=== PATIENT | male | born 1985 | race Caucasian/White ===

== ENCOUNTER 2016-12-02 02:29 | Inpatient (IN) | payer SELFPAY ==
[~2016-12-02] VITALS: Ht 175.3 cm; Wt 60.1 kg
[~2016-12-02 02:29] MED LIST: CIPRO500 MG PO; PERCOCET 5/31 TABLET PO
[2016-12-02 03:05] LABS: ADD MIUA? NO; BILIRUBIN NEGATIVE; BLOOD NEGATIVE; COLOR STRAW ((YELLOW)); GLUCOSE (STRIP) NEGATIVE; KETONES NEGATIVE; LEUKOCYTES NEGATIVE; NITRITE NEGATIVE; PROTEIN (STRIP) NEGATIVE; SPECIFIC GRAVITY 1.006 (1.000-1.030); UCUL ADDED? NO; UROBILINOGEN 0.2 MG/DL (0.2-1.0)
[2016-12-02 03:10] LABS: COCAINE NEGATIVE (150 ng/mL); METHAMPHETAMINE NEGATIVE (500 ng/mL); PHENCYCLIDINE NEGATIVE (25 ng/mL); THC CANNABINOIDS PRESUMPTIVE POSITIVE (50 ng/mL)
[2016-12-02 03:11] LABS: ADD MEDTOX COMMENT Y; AMPHETAMINE NEGATIVE (500 ng/mL); BARBITURATES PRESUMPTIVE POSITIVE (200 ng/mL); BENZODIAZEPINES NEGATIVE (150 ng/mL); INTERNAL CONTROLS VALID? YES; METHADONE NEGATIVE (200 ng/mL); OPIATES (MORPHINE) PRESUMPTIVE POSITIVE (100 ng/mL); OXYCODONE NEGATIVE (100 ng/mL); PROPOXYPHENE NEGATIVE (300 ng/mL); TRICYCLIC ANTIDEPRESSANTS NEGATIVE (300 ng/mL)
[2016-12-02 03:11] LABS: HEMATOCRIT 41.7 % (38.0-50.0); MCH 30.2 PG (29.0-34.0); MCHC 34.8 G/DL (30.0-36.0); MCV 86.9 FL (86-99); MEAN PLAT.VOLUME 9.7 uM^3 (9.0-12.4); PLATELET COUNT 352 K/uL (156-360); RBC DIS.WIDTH-CV 12.1 % (11.8-14.6); WHITE BLOOD COUNT 11.6 K/uL (4.1-10.2)
[2016-12-02 03:21] LABS: CHLORIDE 101 mEq/L (99-109); POTASSIUM 3.7 mEq/L (3.7-5.4); SODIUM 140 mEq/L (136-147)
[2016-12-02 03:23] LABS: GLUCOSE 114 mg/dL (70-99)
[2016-12-02 03:24] LABS: ANION GAP 16 MEQ/L (2-14)
[2016-12-02 03:26] LABS: SERUM ETHYL ALCOHOL < 10 mg/dL
[2016-12-02 03:27] LABS: GFR ESTIMATE (CALCULATED) > 59 mL/min/
[2016-12-02 03:28] LABS: UREA NITROGEN (BUN) 7 mg/dL (9-23)
[2016-12-02 08:18] VITALS: BP 128/68
[2016-12-02 15:03] VITALS: BP 118/73
[2016-12-02 21:58] VITALS: BP 113/63
[2016-12-03 07:57] VITALS: BP 118/73
[2016-12-03 10:28] LABS: TROP-I INTERPRETATION NEGATIVE; TROPONIN-I < 0.01 ng/mL (0.0-0.30)
[2016-12-03 15:39] VITALS: BP 118/65
[2016-12-04 08:01] VITALS: BP 116/72
[2016-12-04 16:08] VITALS: BP 121/63
[2016-12-05 07:48] VITALS: BP 114/71
== END 2016-12-05 12:59 | disposition home or self-care (01) | DRG 897 ==
LOC: EME 02:29 → 1WEST 06:18 → EDOF 06:18 → 1WEST 08:07 → ENRESERV 08:13 → 1WEST 08:14
PROVIDERS: Emergency Medicine; Psychiatry & Neurology Psychiatry
DX: F11.24 Opioid dependence with opioid-induced mood disorder (principal); F16.980 Hallucinogen use, unspecified with hallucinogen-induced anxiety disorder; R45.851 Suicidal ideations; F12.90 Cannabis use, unspecified, uncomplicated; R00.1 Bradycardia, unspecified; F17.200 Nicotine dependence, unspecified, uncomplicated; Z59.0 Homelessness
CPT/HCPCS: 80048; 81003; 84443; 84484; 84999; 85027; 90837; 93005; 99281; 99285; G0480; Q0177

== ENCOUNTER 2017-07-15 18:37 | Emergency (ER) | payer OTHER ==
[~2017-07-15] VITALS: Ht 170.2 cm; Wt 82.0 kg
[2017-07-15 19:55] LABS: HEMATOCRIT 45.4 % (38.0-50.0); HEMOGLOBIN 15.7 G/DL (12.5-16.6); MCH 30.3 PG (29.0-34.0); MCHC 34.6 G/DL (30.0-36.0); MCV 87.5 FL (86-99); PLATELET COUNT 391 K/uL (156-360); RBC DIS.WIDTH-CV 11.9 % (11.8-14.6); RBC DIS.WIDTH-SD 38.5 % (39-53); RED BLOOD COUNT 5.19 M/uL (4.00-5.50); WHITE BLOOD COUNT 8.2 K/uL (4.1-10.2)
[2017-07-15 20:01] LABS: APPEARANCE CLEAR ((CLEAR)); BILIRUBIN NEGATIVE; BLOOD NEGATIVE; COLOR STRAW ((YELLOW)); GLUCOSE (STRIP) NEGATIVE; KETONES NEGATIVE; LEUKOCYTES NEGATIVE; NITRITE NEGATIVE; PROTEIN (STRIP) NEGATIVE; SPECIFIC GRAVITY 1.006 (1.000-1.030); UCUL ADDED? NO; UROBILINOGEN 0.2 MG/DL (0.2-1.0)
[2017-07-15 20:12] LABS: CHLORIDE 101 MEQ/L (99-109); POTASSIUM 4.1 MEQ/L (3.7-5.4); SODIUM 139 MEQ/L (136-147)
[2017-07-15 20:17] LABS: CREATININE 0.8 MG/DL (0.6-1.3); GFR ESTIMATE (CALCULATED) > 59 mL/min/ (58.99-99999); GLUCOSE 93 mg/dL (70-99); UREA NITROGEN (BUN) 7 mg/dL (9-23)
[2017-07-15] MEDS ORDERED: NORCO 5/3251 TABLET PO (22:34)
[2017-07-15 22:53] VITALS: BP 148/92
== END 2017-07-15 22:53 | disposition home or self-care (01) ==
LOC: EME 18:37
DX: R10.9 Unspecified abdominal pain (principal); Z87.891 Personal history of nicotine dependence
CPT/HCPCS: 74176; 80048; 81003; 85027; 99281; 99284